=== PATIENT | female | born 1980 | race African-American/Black ===

== ENCOUNTER 2017-05-10 16:32 | Emergency (ER) | payer MEDICARE, OTHER ==
[~2017-05-10] VITALS: Wt 79.5 kg
[~2017-05-10 16:32] MED LIST: PREN-39
[2017-05-10] MEDS ORDERED: KETOROLAC 15 MG INJ IM STA (17:05)
[2017-05-10] MEDS ORDERED: DIAZEPAM 5 MG TAB PO ONE (17:30)
--- NOTE | 2017-05-10 17:46 | ERD ---
ER Documentation Chief Complaint Date/Time DATE: 05/10/17 TIME: 17:37 Chief Complaint NUBMNESS ON RIGHT SIDE OF BODY, ONSET LAST NIGHT, MILD GILL, NO WEAKNESS HPI This 34-year-old female presents to emergency department with sudden onset last night of right-sided neck pain, tingling and numbness radiating down her right arm, fingers, patient reports a intermittent right-sided headache. Denies any injury, change in vision, history of hypertension. Patient reports preeclampsia 7 years ago hospitalized and that she did lose her child but she denies any history of CVA. She does not have hypertension now is on no medication. Patient in room with her boss who is drove her here, she works on a computer, denies any abnormal stress, headache at this time, change in vision or behavior.. ROS All systems reviewed and are negative except as per history of present illness. Medications Home Meds Active Scripts Diazepam* (Valium*) 5 Mg Tablet, 5 MG PO Q8 for myopathy , #10 TAB Prov:CALE,DARIELA 05/10/17 Naproxen* (Naprosyn*) 500 Mg Tablet, 500 MG PO BID Y for PAIN AND/OR INFLAMMATION, #20 TAB Prov:CALE,DARIELA 05/10/17 Reported Medications Vits W-Ca,Fe,Fa(<1MG) ( Vitamins) 1 Tab Tablet 09/29/10 Allergies Allergies: Coded Allergies: No Known Allergy (Verified , 01/09/15) PMhx/Soc History of Surgery: No Anesthesia Reaction: No Hx Neurological Disorder: No Hx Respiratory Disorders: No Hx Cardiac Disorders: No Hx Psychiatric Problems: No Hx Miscellaneous Medical Probl: No Hx Alcohol Use: No Hx Substance Use: No Hx Tobacco Use: No Smoking Status: Never smoker Physical Exam Vitals Vital Signs Date Time Temp Pulse Resp B/P Pulse Ox O2 Delivery O2 Flow Rate FiO2 05/10/17 16:36 98.5 88 17 145/101 100 Vitals stable, triage notes reviewed Physical Exam Const: Well-appearing, well-nourished, well-hydrated with clear speech in no acute distress. Head: Atraumatic Eyes: Normal Conjunctiva PERRLA, EOMI ENT: Normal External Ears, Nose and Mouth, mucous membranes moist Neck: Full range of motion lateral bending, flexion and extension , right-sided paraspinal tenderness reproducible with palpable spasm Resp: Respirations even and unlabored, no respiratory distress Cardio: Abd: Skin: Back: Ext: Neur: Neuro: M/S: Alert and oriented Face: EOMI, face and pharynx with normal sensation and function Motor: Normal strength throughout Sensation: Normal sensation throughout Speech: Normal Cerebel: Normal coordination Normal gait Normal finger to nose No pronator drift DTR: 2+ and symmetric upper/lower extremities Psych: Normal Mood and Affect Results 24 hrs Current Medications Medications (Trade) Dose Ordered Sig/Apple Route PRN Reason Start Time Stop Time Status Last Admin Dose Admin Ketorolac Tromethamine (Toradol) 15 mg ONCE STAT IM 05/10/17 17:05 05/10/17 17:14 DC 05/10/17 17:35 Diazepam (Valium) 5 mg ONCE ONCE PO 05/10/17 17:30 05/10/17 17:31 DC 05/10/17 17:31 Procedures/MDM This pleasant 37-year-old female presents to emergency department with complaint of right-sided numbness and tingling. Patient speech is clear, no neurologic deficit, headache is not present at this time and vital signs are stable. I have low suspicion for CVA, TIA, brain lesion, intracranial mass or subarachnoid hemorrhage,. Patient's physical exam and history support cervical strain unknown cause suspected related to body mechanics or her sleep hygiene. Patient treated in emergency department with 15 mg of intramuscular Toradol, 5 mg p.o. Valium, patient reassessed after 45 minutes with improvement of symptoms. Patient will be discharged home to continue current therapy of Naprosyn 500 mg twice daily 10 days, Valium 1 tab p.o. every 8 hours as needed myopathy. Patient instructed to follow-up with primary care physician for treatment reevaluation or possible referral to physical therapy. Return to emergency department for headache, responding to treatment, numbness or tingling not resolving with treatment, change in speech, or change in vision. I feel the patient is stable for discharge at this time with outpatient management as discussed. I have discussed results, examination findings, the treatment plan with the patient and family present prior to discharge. Indications for emergent reevaluation, side effects of medication were also discussed. All questions were answered. Patient verbalizes understanding and agrees with plan of care. Departure Diagnosis: Primary Impression: Cervical muscle strain Encounter type: initial encounter Qualified Code: S16.1XXA - Cervical muscle strain, initial encounter Condition: Good Patient Instructions: Neck Pain, No Trauma Additional Instructions: Thank you for for coming to [facility] for your care today. Please ask your nurse or provider if you have questions about your care today and do not leave until all your questions have been answered. Please use any medications given as directed and follow-up with your doctor (or the doctor you were referred to) in the next 2-3 days. If you do not have a primary care doctor you may [place] [facility] [place] ([place] You may also use motrin and tylenol as needed for fever and/or pain unless instructed otherwise by your provider or nurse. Indications for more urgent follow-up have been discussed, but you may return to the Emergency Department at ANY time for any worrisome or worsening symptoms. If you have abdominal pain, please know that no test or exam you received is perfect and you should follow up within 8 hours for continued pain. If you had any imaging studies today, such as an X-Ray or CT Scan, these studies will be reviewed later by a radiologist. You will be called if there are important findings that were not identified today, so make sure the contact information you provided at registration is correct. If you received any narcotic pain control medicine today, such as Vicodin, Morphine or Dilaudid, your coordination and judgment may be affected for a number of hours. Please do not drive or operate heavy machinery, and you may want someone to assist you at home. If you were given a prescription for narcotic medication, be aware that it is very addictive- use sparingly and only if necessary. DARIELA MADSEN May 10, 2017 17:46
[2017-05-10] MEDS ORDERED: NAPR-260 PO (17:47)
[2017-05-10] MEDS ORDERED: DIAZ-90 PO (17:47)
== END 2017-05-10 18:00 | disposition home or self-care (01) ==
LOC: FTE 16:32
DX: S16.1XXA Strain of muscle, fascia and tendon at neck level, initial encounter (principal); X58.XXXA Exposure to other specified factors, initial encounter; Y92.9 Unspecified place or not applicable
CPT/HCPCS: 96372; 99284; J1885